=== PATIENT | female | born 1940 | race Caucasian/White ===

== ENCOUNTER 2024-07-25 16:41 | Observation (INO) | payer MEDICARE, SELFPAY ==
[2024-07-25 18:53] LABS: #Basophils 0.03 10x3/uL (0.0-0.2); %Basophils 0.5 % (0.0-1.0); %Eosinophils 1.9 % (0.0-10.0); %Lymphocytes 25.2 % (21.0-51.0); %Monocytes 11.3 % (0.0-10.0); %Neutrophils 60.6 % (42.0-75.0); Hematocrit 36.5 % (36.0-47.0); Hemoglobin 12.2 g/dL (12.0-16.0); Mean Corpuscular HGB CONC 33.4 g/dL (32.0-36.0); Mean Corpuscular Hemoglobin 28.2 pg (27.0-31.0); Mean Corpuscular Volume 84.5 fL (78.0-98.0); Mean Platelet Volume 9.2 fL (7.4-10.4); Platelet Count 182 10x3/uL (130-400); RBC Distribution Width 14.7 % (11.5-14.5); Red Blood Cell (RBC) Count 4.32 mill/uL (4.20-5.40)
[2024-07-25 19:09] LABS: ALT (SGPT) 17 U/L (8-55); AST (SGOT) 16 U/L (5-34); Albumin 2.7 g/dL (3.4-4.8); Alkaline Phosphatase 105 U/L (40-110); Anion Gap 12 mmol/L (10-20); BUN (Urea Nitrogen) 24 mg/dL (9.8-20.1); Bilirubin, Total 0.4 mg/dL (0.2-1.2); Calc. Creatinine Clearance 0 mL/min (70-130); Carbon Dioxide 23 mmol/L (23-31); Chloride 101 mmol/L (98-107); Estimated GFR 14; Globulin 3.7 g/dL (2.4-3.5); Glucose 218 mg/dL (83-110); Protein, Total 6.4 g/dL (5.8-8.1); Sodium 132 mmol/L (136-145)
[2024-07-25 19:13] LABS: INR-International Normal Ratio 1.1; Prothrombin Time 13.7 sec (12.0-14.7)
[2024-07-25 19:14] LABS: PTT 31.6 sec (22.9-36.1)
[2024-07-25] MEDS ORDERED: Ondansetron ODT 4 MG TAB PO PRN (20:58)
[2024-07-25] MEDS ORDERED: Ondansetron PF 4 MG/2 ML Vial IVP PRN (20:58)
[2024-07-25] MEDS ORDERED: Acetaminophen 650 MG Suppository PR PRN (20:58)
[2024-07-25] MEDS ORDERED: Calcium Carbonate 500 MG ChewTAB PO PRN (20:58)
[2024-07-25 22:23] VITALS: BMI 23.4
[2024-07-25] MEDS: Acetaminophen 325 MG TAB PO SCH (23:51)
[2024-07-26 05:48] LABS: Hemoglobin A1c 7.1 % (4.0-6.0)
[2024-07-26 05:50] LABS: Anion Gap 14 mmol/L (10-20); BUN (Urea Nitrogen) 25 mg/dL (9.8-20.1); Calc. Creatinine Clearance 11 mL/min (70-130); Calcium 7.7 mg/dL (7.8-10.44); Carbon Dioxide 21 mmol/L (23-31); Chloride 100 mmol/L (98-107); Estimated GFR 13; Glucose 302 mg/dL (83-110); Potassium 3.8 mmol/L (3.5-5.1); Sodium 131 mmol/L (136-145)
[2024-07-26] MEDS: Metoprolol Tartrate 25 MG TAB PO SCH ×2 (06:41→07:21)
[2024-07-26] MEDS ORDERED: CEFAZOLIN 2 GM in Sodium Chloride 0.9% 100 ML IVPB SCH ×2 (07:00→18:00)
[2024-07-26] MEDS: Pantoprazole 40 MG DR.TAB PO SCH (08:02)
[2024-07-26] MEDS: Sertraline 25 MG TAB PO SCH (08:02)
[2024-07-26] MEDS: Ferrous Sulfate 325 MG TAB PO SCH (08:02)
[2024-07-26] MEDS ORDERED: CEFAZOLIN 2 GM VIAL ONE (08:46)
[2024-07-26] MEDS ORDERED: Amiodarone 200 MG TAB PO SCH (09:00)
[2024-07-26] MEDS ORDERED: Lidocaine 2% PF 5 ML VIAL ONE (09:25)
[2024-07-26] MEDS ORDERED: Bupivacaine PF 0.5% 30 ML VIAL ONE (09:25)
[2024-07-26] MEDS ORDERED: EPINEPHrine 1 MG/ML VIAL ONE (09:25)
[2024-07-26] MEDS ORDERED: Heparin 10,000 UNITS/ 10 ML VIAL ONE ×2 (09:25→09:58)
[2024-07-26] MEDS ORDERED: Sodium Chloride 0.9% 100 ML ONE (09:43)
[2024-07-26] MEDS ORDERED: PROPOFOL 20 ML ONE (09:47)
[2024-07-26] MEDS ORDERED: Ondansetron PF 4 MG/2 ML Vial ONE (09:49)
[2024-07-26] MEDS ORDERED: Lidocaine 1% PF 5 ML VIAL ONE (09:50)
[2024-07-26] MEDS ORDERED: Dextrose 50% Abboject 50 ML SYRINGE SLOW IVP PRN (11:11)
[2024-07-26] MEDS ORDERED: Dextrose 5% in Water 1,000 ML IV PRN (11:11)
[2024-07-26] MEDS ORDERED: Glucagon 1 MG/ML KIT IM PRN (11:11)
[2024-07-26 11:52] LABS: HBSAB Concentration Less than 8.00 mIU/mL; HBsAg Index 0.29 S/CO (0-0.99); Hep B Core Total Ab NONREACTIVE (NonReactive); Hep B Core Total Index 0.11 S/CO (0-0.79); Hep B Surf AB NONREACTIVE (NonReactive); Hep B Surf Ag NONREACTIVE S/CO (NonReactive); Hep C IgG Ab NONREACTIVE S/CO (NonReactive); Hep C Index 0.21 S/CO (0-0.79)
[2024-07-26] MEDS: Insulin Lispro 100 UNIT/ML 10 ML VIAL SC PRN (18:20)
[2024-07-26] MEDS: Donepezil HCl 5 MG TAB PO SCH (21:26)
[2024-07-26] MEDS: Melatonin 3 MG TAB PO SCH (21:26)
[2024-07-26] MEDS: Senokot 8.6 MG TAB PO SCH (21:26)
[2024-07-26] MEDS: Atorvastatin Calcium 10 MG TAB PO SCH (21:26)
[2024-07-27] MEDS: Levothyroxine Sodium 100 MCG TAB PO SCH (05:57)
[2024-07-27 11:27] VITALS: BP 175/74; TEMP 98.2
== END 2024-07-27 12:40 ==
LOC: ERS 16:41 → SURG A 20:57
PROVIDERS: ADMIT Student in an Organized Health Care Education/Training Program; ATTEND Internal Medicine
PROC: 05PYX3Z Removal of Infusion Device from Upper Vein, External Approach (ICD-10-PCS; principal; 2024-07-25)
PROC: 05HN33Z Insertion of Infusion Device into Left Internal Jugular Vein, Percutaneous Approach (ICD-10-PCS; 2024-07-25)
DX: T82.590A Other mechanical complication of surgically created arteriovenous fistula, initial encounter (principal); I12.0 Hypertensive chronic kidney disease with stage 5 chronic kidney disease or end stage renal disease; N18.6 End stage renal disease; E11.22 Type 2 diabetes mellitus with diabetic chronic kidney disease; E03.9 Hypothyroidism, unspecified; D63.1 Anemia in chronic kidney disease; F03.90 Unspecified dementia, unspecified severity, without behavioral disturbance, psychotic disturbance, mood disturbance, and anxiety; Z99.2 Dependence on renal dialysis; Z79.890 Hormone replacement therapy; Z79.01 Long term (current) use of anticoagulants; Z79.899 Other long term (current) drug therapy; Y83.1 Surgical operation with implant of artificial internal device as the cause of abnormal reaction of the patient, or of later complication, without mention of misadventure at the time of the procedure
CPT/HCPCS: 36558; 36590; 71045 ×2; 80048; 80053; 82962 ×2; 83036; 85025; 85610; 85730; 86704; 86706; 86803; 87340; 93005; 99285; A6258; G0378 ×3; J0171; J0665; J1644; J1815; J2405; J2704; 36415; 36416; 90935; 93010; G0257